=== PATIENT | female | born 1995 | race African-American/Black ===

== ENCOUNTER 2019-09-13 17:24 | Emergency (ER) | payer BC, SELFPAY ==
--- NOTE | ~2019-09-13 | US_ITS ---
EXAMINATION: US OB <=14 wk fetus w TV DATE: 09/13/2019 21:13 INDICATION: Vaginal bleeding during first trimester . Presyncope. TECHNIQUE: Real-time pelvic ultrasound utilizing both a transvaginal and transabdominal probe was pe rformed. The interpreting radiologist was not present for the study. COMPARISON: None. FINDINGS: The uterus measures 10.6 x 3.7 x 5.9 cm. There is an intrauterine gestational sac. A yolk sac and fe roshan pole are identified. The crown rump length measures 5 mm, which correlates with an estimated gest ational age of 6 weeks and 1 days. heart motion is identified measuring 165 beats per minute (b pm) by M-mode Doppler. The right ovary measures 4.5 x 3.1 x 4.4 cm. 3.3 x 2.7 x 3.2 cm anechoic likely corpus luteum cyst in the right ovary. The left ovary measures 2.6 x 1.9 x 2.5 cm. Cervical os identified at both ovaries on color Doppler. There is tiny amount of anechoic free fluid in the pelvis. IMPRESSION: 1. Single living fetus with heart rate of 165 bpm. 2. Gestational age by ultrasound of 6 weeks 1 day(s) +/- 4 day(s) with ultrasound estimated date of delivery ([facility]) of 05/07/2020. Reviewed, dictated and finalized at location A. IT OPERATOR IMPRESSION: 1. Single living fetus with heart rate of 165 bpm. 2. Gestational age by ultrasound of 6 weeks 1 day(s) +/- 4 day(s) with ultraso und estimated date of delivery ([facility]) of 05/07/2020.
[2019-09-13 17:28] VITALS: BP 148/78; PULSE 107; RESP 18; TEMP 36.2; O2SAT 100
--- NOTE | 2019-09-13 17:33 | ECG_ITS ---
Measurements Intervals [place] Rate: 88 P: 47 [place]: 141 QRS: 34 QRSD: 73 T: 8 QT: 318 QTc: 386 Interpretive Statements SINUS RHYTHM POSSIBLE LEFT ATRIAL ENLARGEMENT BORDERLINE ECG Electronically Signed On 09-14-2019 6:53:11 SEISMOGRAPH HELPER by Larry Rueda D.O.
[2019-09-13 18:15] LABS: Basophils Percent Auto 0.4 % (0.2-1.2); Eosinophils Absolute Auto 0.1 K/mm3 (0-0.3); Eosinophils Percent Auto 0.9 % (0-4.4); Hematocrit 33.8 % (37.0-47.0); Hemoglobin 11.5 g/dL (12.0-15.0); Immature Granulocyte Absolute 0.05 K/mm3 (0.00-0.031); Immature Granulocyte Percent A 0.7 % (0-0.5); Lymphocytes Absolute Auto 1.85 K/mm3 (0.9-3.2); Lymphocytes Percent Auto 26.6 % (18.3-44.2); Mean Corpuscular Hemoglobin 29.5 pg (26-34); Mean Corpuscular Volume 86.7 fl (80-100); Mean Platelet Volume 9.6 fl (7.4-10.4); Monocytes Absolute Auto 0.4 K/mm3 (0.1-0.6); Monocytes Percent Auto 5.7 % (2.6-8.5); Neutrophils Absolute Auto 4.6 K/mm3 (1.3-6.7); Neutrophils Percent Auto 65.7 % (45.5-73.1); Platelet Count Result 263 k/mm3 (150-375); Red Cell Distribution Width 13.2 % (11.5-14.5)
--- NOTE | 2019-09-13 18:18 | ED.SYNCOPE ---
HPI - Syncope General Chief Complaint: Syncope Stated Complaint: near syncopal episode Time Seen by Provider: 09/13/19 17:34 Source: patient Mode of arrival: ambulatory Limitations: no limitations History of Present Illness HPI narrative: A 24 y/o female pt, that is 7 weeks , presents to the ED, with c/o near syncopal episode that happened today. Pt states that she was sitting down and began feeling hot, and when she stood up to go get a drink, she began feeling lightheaded and dizzy and almost passed out. She notes that she began spotting today at 1200PM, but now notes brown discharge. She denies N/V/D, constipation, CP, SOB, heart palpitations, fever, cough, frequent/infrequent urination, dysuria, or having sick contacts. Pt notes that her OBGYN is Dr. Castillo, and that she has an appointment on 09/22/2019. She is unsure of her blood type and denies having any significant PMHx. Pt states this is her first . MD complaint: almost passed out Onset (ago): hour(s) Prodromal symptoms: lightheaded and other (hot flash) Witnessed: Yes - by Other (family) Context: standing up Current symptoms: back to baseline History: other (7 weeks ) Related Data Home Medications Medication Instructions Recorded Confirmed No Home Medications 09/13/19 09/13/19 Allergies Allergy/AdvReac Type Severity Reaction Status Date / Time ethinyl estradiol Allergy Palpitation Verified 09/13/19 17:32 [From Lutera (28)] s levonorgestrel Allergy Palpitation Verified 09/13/19 17:32 [From Lutera (28)] s Review of Systems Review of Systems: All systems reviewed & are unremarkable except as noted in HPI and below Constitutional: Constitutional: Denies fever(s) and Reports other (hot flash) Cardiovascular: Cardiovascular: Denies chest pain, Reports lightheadedness and Denies palpitations Respiratory: Respiratory: Denies cough and Denies dyspnea Gastrointestinal: Gastrointestinal: Denies diarrhea, Denies nausea and Denies vomiting Genitourinary: Genitourinary: Reports abnormal vaginal bleeding (spotting, light brown), Denies nocturia, Denies dysuria and Reports other (infrequent urination) Neurologic: Reports dizziness and Reports other (near syncope) PMFSH Past Medical History Medical History (Updated 09/13/19 @ 22:29 by Chip Dalton MD) Migraines Surgical History Surgical History (Updated 09/13/19 @ 20:07 by RAMU Calle) History of reduction mammoplasty Social History Social History Smoking status: Never smoker Alcohol intake: current Substance use: never Gender identity (if verbalized by the patient): Female Exam Narrative: Exam Narrative: GENERAL: Well-appearing, well-nourished, and in no acute distress. HEAD: Normocephalic, atraumatic. ENT: Mucous membranes moist. CHEST: Clear to auscultation. No respiratory distress. HEART: Tachycardic irregular. Normal peripheral pulses. ABDOMEN: Soft, nontender, nondistended. EXTREMITIES: Normal range of motion. No edema. SKIN: Warm, dry, no rash. NEURO: Alert and oriented x3. PSYCH: Normal mood and affect. Course Course Emergency Course: Informed of results. Discharge home. Vital Signs Vital signs: Vital Signs Temperature 97.1 F L 09/13/19 17:28 Pulse Rate 107 H 09/13/19 17:28 Respiratory Rate 18 09/13/19 17:28 Blood Pressure 148/78 H 09/13/19 17:28 Pulse Oximetry 100 09/13/19 17:28 Temperature 97.1 F L 09/13/19 17:28 Pulse Rate 94 09/13/19 22:47 Respiratory Rate 20 09/13/19 22:47 Blood Pressure 107/91 H 09/13/19 22:47 Pulse Oximetry 100 09/13/19 22:47 MDM - Syncope Lab Data Result diagrams: 09/13/19 18:09 09/13/19 18:09 Labs: Lab Results 09/13/19 09/13/19 09/13/19 Range/Units 18:09 18:09 19:21 WBC 7.0 (4.5-10.0) K/mm3 RBC 3.90 L (4.2-5.4) M/mm3 Hgb 11.5 L (12.0-15.0) g/dL Hct 33
[2019-09-13 18:26] VITALS: BP 113/69; BP 117/77; BP 121/71; PULSE 109; PULSE 110; PULSE 96
[2019-09-13 18:28] LABS: Blood Urea Nitrogen 11 mg/dL (7-17); Calcium 8.9 mg/dL (8.4-10.2); Carbon Dioxide 24 mmol/L (22-30); Chloride 104 mmol/L (98-107); Estimated CRCL calculation 71 ml/min; Estimated Glomerular Filt Rate > 60; Glucose 101 mg/dL (65-105); Potassium 3.6 mmol/L (3.4-5.0); Sodium 135 mmol/L (137-145)
[2019-09-13] MEDS: SODIUM CHLORIDE 0.9% IV 1,000 ML 999 ML IV CONT (18:53)
[2019-09-13 19:05] VITALS: BP 120/59; PULSE 79; RESP 16; O2SAT 99
[2019-09-13 20:03] VITALS: BP 114/98; PULSE 100; RESP 20; O2SAT 99
[2019-09-13 21:40] VITALS: BP 119/78; PULSE 96; RESP 20; O2SAT 98
[2019-09-13 22:47] VITALS: BP 107/91; PULSE 94; RESP 20; O2SAT 100
== END 2019-09-13 22:49 | disposition home or self-care (01) ==
PROVIDERS: Emergency Provider Emergency Medicine
DX: O26.891 Other specified pregnancy related conditions, first trimester (principal); R55 Syncope and collapse; Z3A.01 Less than 8 weeks gestation of pregnancy; R94.31 Abnormal electrocardiogram [ECG] [EKG]
CPT/HCPCS: 36415; 76801; 76817; 80048; 81025; 84702; 85025; 86850; 86900; 86901; 93005; 96360; 96361; 99284; J7030

== ENCOUNTER 2020-01-18 23:32 | Observation (INO) | payer SELFPAY ==
[2020-01-18 23:18] VITALS: BP 129/90; PULSE 115; RESP 15; TEMP 36.9; O2SAT 100
[2020-01-18 23:48] VITALS: BP 127/83; PULSE 103; TEMP 36.7
[2020-01-19] VITALS (18 sets, daily range): BP systolic 98–134; BP diastolic 56–106; PULSE 89–167; RESP 20–22; TEMP 37.1–37.2; BMI 34.6
--- NOTE | 2020-01-19 00:06 | LDADM ---
This patient, Harriett Coffey, was admitted to [facility] on 01/18/20 at 23:32. Plans for labor, pain management and were discussed with patient. Patient/family oriented to hospital policies and general routines including ID bracelet, bed and alarms, visiting hours, pain management, procedures, bathroom and other care routines, personal items, smoking policy, room service/diet and guest tray routines, infant security routines, and visiting hours. Patient/Family are encouraged to report perceived risks to care and to ask questions if they do not understand what they are told or what they should do. See OBIX for further documentation.
[2020-01-19 00:33] LABS: Add Urine Microscopic? YES; Appearance Urine Clear (Clear); Bacteria Urine Trace /hpf; Bilirubin Urine Negative (Negative); Blood Urine Negative (Negative); Color Urine Yellow (Yellow); Glucose Urine UA Negative (Negative); Ketones Urine Negative (Negative); Leukocyte Esterase Ur Trace LEU/UL (Negative); Mucus Urine Rare /lpf; Nitrate Urine Negative (Negative); Protein Urine Negative (Negative); RBC Urine 0-2 /hpf (0-2); Specific Grav Ur 1.015 (1.001-1.035); Squamous Epithelial Cell Urine Moderate /hpf (Few); Urobilinogen Urine Negative mg/dL (<2.0)
[2020-01-19] MEDS: ACETAMINOPHEN 500 MG TABLET 1000 MG PO (02:07)
[2020-01-19] MEDS: LACTATED RINGERS 1,000 ML 75 ML IV CONT (02:41)
[2020-01-19 02:43] LABS: Fetal Fibronectin Positive
[2020-01-19] MEDS: AMPICILLIN 2 GM/NS 100 ML 2 GM/100 ML BAG IVPB (02:43)
[2020-01-19] MEDS: MAGNESIUM SULF 4 GM/WATER100ML 4 GM/100 ML BAG IVPB (02:43)
[2020-01-19] MEDS: BETAMETHASONE SOD PHOS/ACETATE 30 MG/5 ML VIAL 12 MG IM (02:59)
[2020-01-19] MEDS: MAGNESIUM SULF 20GM/WATER500ML 500 ML 50 MG IV CONT (03:23)
[2020-01-19 03:44] LABS: Basophils Percent Auto 0.3 % (0.2-1.2); Eosinophils Absolute Auto 0.1 K/mm3 (0-0.3); Eosinophils Percent Auto 0.6 % (0-4.4); Hematocrit 34.2 % (37.0-47.0); Hemoglobin 11.8 g/dL (12.0-15.0); Immature Granulocyte Absolute 0.31 K/mm3 (0.00-0.031); Immature Granulocyte Percent A 2.9 % (0-0.5); Lymphocytes Absolute Auto 2.48 K/mm3 (0.9-3.2); Lymphocytes Percent Auto 22.9 % (18.3-44.2); Mean Corpuscular HGB Conc 34.5 g/dl (32-36); Mean Corpuscular Hemoglobin 29.4 pg (26-34); Mean Corpuscular Volume 85.3 fl (80-100); Mean Platelet Volume 10.2 fl (7.4-10.4); Monocytes Absolute Auto 0.8 K/mm3 (0.1-0.6); Monocytes Percent Auto 7.1 % (2.6-8.5); Neutrophils Absolute Auto 7.2 K/mm3 (1.3-6.7); Neutrophils Percent Auto 66.2 % (45.5-73.1); Platelet Count Result 306 k/mm3 (150-375); Red Blood Count 4.01 M/mm3 (4.2-5.4); Red Cell Distribution Width 13.1 % (11.5-14.5); White Blood Count 10.8 K/mm3 (4.5-10.0)
--- NOTE | 2020-01-19 03:46 | PC.NURSE ---
dr davidson called [facility] to request pt transfer
--- NOTE | 2020-01-19 03:47 | PM.TDS ---
Transfer Discharge Sum: Prov Provider Date of admission: 01/18/20 23:32 Primary care physician: PHYSICIAN NOT ON STAFF Admitting clinician: Anthony Castillo MD DS: Admitting Diagnosis Admitting Diagnosis Admitting Diagnosis: cramping, leaking fluid DS: Discharge Diagnosis Discharge Diagnosis (1) premature rupture of membranes (PPROM) delivered, current hospitalization: Code(s): O42.919 - premature rupture of membranes, unspecified as to length of time between rupture and onset of labor, unspecified trimester Status: Acute Assessment and Plan: s/p magnesiumm, ampicillin, azithromycin and Betamethasone Transfer Discharge Sum: Med Medications Active and Home Medications: Home Medications No Home Medications 09/13/19 [History Confirmed 09/13/19] promethazine 25 mg PO Q6H PRN #20 tablet 09/13/19 [Rx] Active Medications Magnesium Sulfate (Magnesium Sulf 20gm/[id number]) 500 mls @ 50 mls/hr IV CONT .Q10H [facility] Last Admin: 01/19/20 03:23 Dose: 50 mls/hr Documented by: Lactated Ringer's (Lr - Lactated Ringers Iv) 1,000 mls @ 75 mls/hr IV CONT .[id number] [facility] Last Admin: 01/19/20 02:41 Dose: 75 mls/hr Documented by: Terbutaline Sulfate (Brethine) 0.25 mg SUB-Q ONCE PRN PRN Reason: Abdominal Cramping Transfer Discharge Sum: Hosp Hospital Course Hospital course: Harriett Coffey is a 24 year old female G1 @ 24 weeks by 6 week ultrasound edc 05/07/20 PNC complicated by first trimester bleeding resolved. Patient reports decreased FM and cramping. FFN and ROM plus were positive.Patient checked by RN after ffn done. BSUS breech with Deepest pocket 4cm. Patient started on magnesium, ampicillin, azithromycin, and betamethasone. Patient transfered to tertiary center [facility]. Time Spent with Patient Time attestation: Total time spent providing and/or coordinating transfer services: DS: Data Data Completed and Pending Labs on day of discharge: Labs from last 24 hours 01/19/20 01/19/20 01/19/20 02:44 02:44 02:10 WBC 10.8 H RBC 4.01 L Hgb 11.8 L Hct 34.2 L MCV 85.3 MCH 29.4 MCHC 34.5 RDW 13.1 Plt Count 306 MPV 10.2 Immature Gran % (Auto) 2.9 H Neut % (Auto) 66.2 Lymph % (Auto) 22.9 [place] % (Auto) 7.1 Eos % (Auto) 0.6 Baso % (Auto) 0.3 Lymph # (Auto) 2.48 [place] # (Auto) 0.8 H Eos # (Auto) 0.1 Baso # (Auto) 0.0 Abs Immat Gran (auto) 0.31 H Absolute Neuts (auto) 7.2 H Absolute Nucleated RBC 0.0 Nucleated RBC % 0.0 Sodium Pending Potassium Pending Chloride Pending Carbon Dioxide Pending BUN Pending Creatinine Pending Estim Creat Clear Calc Pending Estimated GFR Pending Glucose Pending Calcium Pending Urine Color Urine Appearance Urine pH Ur Specific [place] Urine Protein Urine Glucose (UA) Urine Ketones Ur Blood (Man) Urine Nitrate Urine Bilirubin Urine Urobilinogen Leukocyte Esterase Rfl Urine RBC Urine WBC Ur Squamous Epith Cells Urine Bacteria Urine Mucus Fibronectin Positive 01/19/20 00:24 WBC RBC Hgb Hct MCV MCH MCHC RDW Plt Count MPV Immature Gran % (Auto) Neut % (Auto) Lymph % (Auto) [place] % (Auto) Eos % (Auto) Baso % (Auto) Lymph # (Auto) [place] # (Auto) Eos # (Auto) Baso # (Auto) Abs Immat Gran (auto) Absolute Neuts (auto) Absolute Nucleated RBC Nucleated RBC % Sodium Potassium Chloride Carbon Dioxide BUN Creatinine Estim Creat Clear Calc Estimated GFR Glucose Calcium Urine Color Yellow Urine Appearance Clear Urine pH 6.0 Ur Specific [place] 1.015 Urine Protein Negative Urine Glucose (UA) Negative Urine Ketones Negative Ur Blood (Man) Negative Urine Nitrate Negative Urine Bilirubin Negative Urine Urobilinogen Negative Leukocyte Esterase Rfl Trace H Urine RBC 0-2 Urine WBC 10-15 H Ur Squam
[2020-01-19 03:56] LABS: Blood Urea Nitrogen 6 mg/dL (7-17); Calcium 9.5 mg/dL (8.4-10.2); Carbon Dioxide 22 mmol/L (22-30); Chloride 103 mmol/L (98-107); Estimated CRCL calculation 124 ml/min; Estimated Glomerular Filt Rate > 60; Glucose 91 mg/dL (65-105); Potassium 3.8 mmol/L (3.4-5.0); Sodium 133 mmol/L (137-145)
== END 2020-01-19 05:15 | disposition short-term general hospital (02) ==
PROVIDERS: Admitting Provider Obstetrics & Gynecology; Visit Provider Obstetrics & Gynecology
DX: O42.919 Preterm premature rupture of membranes, unspecified as to length of time between rupture and onset of labor, unspecified trimester (principal); Z3A.00 Weeks of gestation of pregnancy not specified
CPT/HCPCS: 36415; 80048; 81001; 82731; 85025; 87086; 96365; 96366; 96367; 96368; 96372; A9270; G0378; G0379; J0290; J0456; J0702; J3475; J7120

== ENCOUNTER 2022-01-09 19:33 | Emergency (ER) | payer BC, OTHER, SELFPAY ==
--- NOTE | ~2022-01-09 | XR_ITS ---
EXAMINATION: XR chest 2V Exam Date/Time: 01/09/2022 20:15 CDT HISTORY: chest pain, sob X TODAY, MIDSTERNAL PAIN, NO CARDIAC HX Comparison: None available. RESULT: Lines, tubes, and devices: None. Lungs and pleura: Clear. Cardiomediastinal silhouette: Unremarkable cardiomediastinal silhouette. Other: No acute osseous or upper abdominal finding. IMPRESSION: No acute cardiopulmonary process. Reviewed, dictated and finalized at location K.
--- NOTE | 2022-01-09 19:54 | ECG_ITS ---
Measurements Intervals [place] Rate: 74 P: 36 CT: 148 QRS: 22 QRSD: 75 T: 23 QT: 344 QTc: 382 Interpretive Statements SINUS RHYTHM WITH SINUS ARRHYTHMIA NORMAL ECG COMPARED TO ECG 09/13/2019 17:43:26 SINUS ARRHYTHMIA NOW PRESENT Electronically Signed On 01-10-2022 11:58:21 CDT by Abdifatah Valladares M.D.
[2022-01-09 19:55] VITALS: BP 151/95; PULSE 65; RESP 18; TEMP 36.4; O2SAT 100
[2022-01-09 20:19] LABS: Basophils Percent Auto 0.5 % (0.2-1.2); Eosinophils Absolute Auto 0.1 K/mm3 (0-0.3); Eosinophils Percent Auto 0.9 % (0-4.4); Hematocrit 38.6 % (37.0-47.0); Hemoglobin 12.9 g/dL (12.0-15.0); Immature Granulocyte Absolute 0.03 K/mm3 (0.00-0.031); Immature Granulocyte Percent A 0.5 % (0-0.5); Lymphocytes Absolute Auto 2.39 K/mm3 (0.9-3.2); Lymphocytes Percent Auto 42.1 % (18.3-44.2); Mean Corpuscular HGB Conc 33.4 g/dl (32-36); Mean Corpuscular Hemoglobin 28.9 pg (26-34); Mean Corpuscular Volume 86.4 fl (80-100); Mean Platelet Volume 9.8 fl (7.4-10.4); Monocytes Absolute Auto 0.5 K/mm3 (0.1-0.6); Monocytes Percent Auto 8.6 % (2.6-8.5); Neutrophils Absolute Auto 2.7 K/mm3 (1.3-6.7); Neutrophils Percent Auto 47.4 % (45.5-73.1); Platelet Count Result 266 k/mm3 (150-375); Red Blood Count 4.47 M/mm3 (4.2-5.4); Red Cell Distribution Width 13.5 % (11.5-14.5); White Blood Count 5.7 K/mm3 (4.5-10.0)
[2022-01-09 20:37] LABS: Partial Thromboplastin Time 30.2 SECONDS (22.3-36.8)
[2022-01-09 20:40] LABS: Troponin I < 0.012 ng/mL (0.000-0.034)
[2022-01-09 21:51] VITALS: BP 147/80; PULSE 65; RESP 18; O2SAT 99
--- NOTE | 2022-01-09 22:54 | ED.GENADULT ---
HPI - General Adult General Chief complaint: Chest Pain Stated complaint: chest pain, shortness of breath x today Time Seen by Provider: 01/09/22 21:50 History of Present Illness HPI narrative: 26-year-old female with no significant past medical history presenting to the emergency department for evaluation of substernal chest pain. Patient states the pain started when she was at rest today. Patient states the pain is worsened with deep inspiration and coughing. Patient denies any prior cardiac history. Patient denies any prior history of PE or DVT. Patient denies any lower extremity tenderness or swelling. Patient does not take any control. Patient denies any long car rides or plane flights. And patient denies any recent viral infection. Related Data Allergies Allergy/AdvReac Type Severity Reaction Status Date / Time ethinyl estradiol Allergy Palpitation Verified 09/13/19 17:32 [From Lutera (28)] s levonorgestrel Allergy Palpitation Verified 09/13/19 17:32 [From Lutera (28)] s Review of Systems Review of Systems: CONSTITUTIONAL: Denies fever, chills, or sweats. EYES: Denies visual changes, redness, or discharge. ENT: Denies rhinorrhea, congestion, sore throat, or otalgia. CARDIOVASCULAR: See HPI RESPIRATORY: See HPI GASTROINTESTINAL: Denies abdominal pain, nausea, vomiting, or diarrhea. GENITOURINARY: Denies dysuria or hematuria. SKIN: Denies rash or itching. MUSCULOSKELETAL: Denies back pain, joint pain, or myalgia. NEUROLOGIC: Denies headache, numbness, or weakness. [facility] Past Medical History Medical History (Updated 01/10/22 @ 19:52 by Dustin Ibarra MD) Migraines premature rupture of membranes (PPROM) delivered, current hospitalization Surgical History Surgical History (Updated 09/13/19 @ 20:07 by Gordon Kelly Trover) History of reduction mammoplasty Social History Social History Smoking status: Never smoker Alcohol intake: current Alcohol use details: socially Substance use: never Gender identity (if verbalized by the patient): Female Exam Narrative: APPEARANCE: Well appearing, no pain, no distress, well-nourished. HEAD: normocephalic, atraumatic. EYES: PERRLA/EOMI, conjunctivae clear. NOSE: Normal no drainage THROAT: Pharynx clear, no exudate. NECK: Supple. No adenopathy, no masses. RESPIRATORY: Airway patent, respirations nonlabored. Clear to auscultation bilaterally, no rales, rhonchi, wheezing. CARDIOVASCULAR: Regular rate and rhythm without murmurs rubs or gallops. No reproducible chest wall tenderness to palpation. ABDOMINAL: Soft, nontender, nondistended, normal bowel sounds MUSCULOSKELETAL: Moves all extremities. Strength/ROM intact, No edema, No calf tenderness. NEURO: Alert. Cranial nerves II through XII intact. Grossly intact SKIN: Warm, dry. Normal Color Course Course Emergency Course: Chest x-ray showed no acute cardiopulmonary normality. Patient's troponins were negative. Patient did have an elevated D-dimer at 0.72. Patient was updated on the plan to rule out pulmonary embolism but patient states she did not want to wait. Patient preferred to sign out AMA. Patient was alert oriented and aware of the risks of signing out to me. Patient was encouraged to have close follow-up with her primary care physician or to return to the emergency department to complete her medical work-up. Vital Signs Vital signs: Vital Signs Temperature 97.5 F L 01/09/22 19:55 Pulse Rate 65 01/09/22 19:55 Respiratory Rate 18 01/09/22 19:55 Blood Pressure 151/95 H 01/09/22 19:55 Pulse Oximetry 100 01/09/22 19:55 Oxygen Delivery Room Air 01/09/22 19:55 Temperature 97.5 F L 01/09/22 19:55 Pulse Rate 60 01/10/22 00:50 Respiratory Rate 16 01/10/22 00:50 Blood Pressure 149/99 H 01/10/22 00:50 Pulse Oximetry 100 01/10/22 00:50 Oxygen Delivery Room Air 01/09/22 19:55
[2022-01-09 23:22] LABS: Lipase 42 U/L (23-300)
[2022-01-09 23:32] LABS: D Dimer 0.72 ug/mL (<0.48)
[2022-01-10 00:50] VITALS: BP 149/99; PULSE 60; RESP 16; O2SAT 100
== END 2022-01-10 00:52 | disposition left against medical advice (07) ==
PROVIDERS: Emergency Provider Emergency Medicine
DX: R07.2 Precordial pain (principal)
CPT/HCPCS: 36415; 71046; 83690; 84484; 85025; 85380; 85610; 85730; 93005; 99284